=== PATIENT | female | born 1965 | race Two or more races ===

== ENCOUNTER 2018-07-08 13:04 | Emergency (ER) | payer MEDICAID ==
[~2018-07-08] VITALS: Ht 149.9 cm; Wt 81.6 kg
[~2018-07-08 13:04] MED LIST: BACTRIM DS TAB1 EAC1 ORAL; NKM
[2018-07-08 13:20] VITALS: BP 132/86
--- NOTE | 2018-07-08 13:20 | NUR ---
ED Nurse Note: PT WALKED IN TO ER TODAY FROM HOME. AOX4. PT C/O RIGHT UPPER QUADRANT ABDOMINAL PAIN, 5/10 X 10 DAYS THAT WORSENS WITH PALPATION. PT DENIES NAUSEA, VOMITING, OR DIARRHEA. PT DENIES TRAUMA OR INJURY.
[2018-07-08] MEDS ORDERED: Isovue-300 100ml vial INJ PRN (13:30)
[2018-07-08] MEDS ORDERED: Morphine Sulfate 4mg/ml Inj (IV USE ONLY) IVP ONE (13:30)
[2018-07-08 14:09] LABS: BASOPHILS % (AUTO) 1.2 % (0.0-2.0); EOSINOPHILS % (AUTO) 0.5 % (0.0-3.0); HEMOGLOBIN 13.9 G/DL (12.0-16.0); LYMPHOCYTES % (AUTO) 40.4 % (20.0-45.0); MEAN CORPUSCULAR VOLUME 92 FL (80-99); MONOCYTES % (AUTO) 5.1 % (1.0-10.0); NEUTROPHILS % (AUTO) 52.9 % (45.0-75.0); PLATELET COUNT 234 K/UL (150-450); RED BLOOD COUNT 4.68 M/UL (4.20-5.40); RED CELL DISTRIBUTION WIDTH 12.5 % (11.6-14.8); WHITE BLOOD COUNT 7.4 K/UL (4.8-10.8)
[2018-07-08 14:10] LABS: APPEARANCE,URINE CLEAR; BILIRUBIN, URINE NEGATIVE (NEGATIVE); COLOR,URINE PALE YELLOW; GLUCOSE, URINE (UA) NEGATIVE (NEGATIVE); KETONES,URINE NEGATIVE (NEGATIVE); LEUKOCYTE ESTERASE ,URINE NEGATIVE (NEGATIVE); NITRITE,URINE NEGATIVE (NEGATIVE); PH,URINE 5 (4.5-8.0); PROTEIN,URINE NEGATIVE (NEGATIVE); UROBILINOGEN,URINE NORMAL MG/DL (0.0-1.0)
[2018-07-08 14:26] LABS: ANION GAP 10 mmol/L (5-15); BLOOD UREA NITROGEN 15 mg/dL (7-18); CALCIUM 8.8 MG/DL (8.5-10.1); CARBON DIOXIDE 26 MMOL/L (21-32); CHLORIDE 105 MMOL/L (98-107); CREATININE 0.8 MG/DL (0.55-1.30); POTASSIUM 3.2 MMOL/L (3.5-5.1); SODIUM 141 MMOL/L (136-145)
[2018-07-08 14:31] LABS: ALANINE AMINOTRANSFERASE 27 U/L (12-78); ALBUMIN 3.5 G/DL (3.4-5.0); ALBUMIN/GLOBULIN RATIO 0.8 (1.0-2.7); ALKALINE PHOSPHATASE 106 U/L (46-116); ASPARTATE AMINO TRANSFERASE 15 U/L (15-37); BILIRUBIN,TOTAL 0.2 MG/DL (0.2-1.0)
[2018-07-08 14:36] VITALS: BP 115/72
--- NOTE | 2018-07-08 14:36 | NUR ---
ED Nurse Note: PT TO CT VIA [facility].
--- NOTE | 2018-07-08 14:40 | Emergency Room Report ---
History of Present Illness General Chief Complaint: Abdominal Pain Source: Patient Present Illness HPI Patient presents with complaints of right upper quadrant pain involving the lower rib cage area Patient reports the pain started about 10 days ago She has paperwork from a different facility from yesterday Patient reports that she had an x-ray and some blood test done Was diagnosed with contusion however reports that she has not fallen Patient has had previous right-sided breast augmentation, and palpates just over the surgical site which is just over the rib cage region on the lower aspect Denies any vomiting denies any diarrhea Pain is worse with movement Allergies: Coded Allergies: No Known Allergies (Unverified , 11/30/15) Patient History Past Medical History: see triage record Pertinent Family History: none Reviewed Nursing Documentation: PMH: Agreed; PSxH: Agreed Nursing Documentation-PMH Past Medical History: No Stated History Hx Cardiac Problems: No Hx Cancer: No Hx Gastrointestinal Problems: No Hx Neurological Problems: No Review of Systems All Other Systems: negative except mentioned in HPI Physical Exam Vital Signs Date Time Temp Pulse Resp B/P (MAP) Pulse Ox O2 Delivery O2 Flow Rate FiO2 07/08/18 13:18 98.1 83 16 137/91 97 Room Air Sp02 EP Interpretation: reviewed, normal General Appearance: well appearing, no apparent distress Head: normocephalic, atraumatic Eyes: bilateral eye PERRL, bilateral eye EOMI ENT: normal pharynx Neck: supple Respiratory: lungs clear, no retraction, no accessory muscle use Cardiovascular #1: regular rate, rhythm, no edema Gastrointestinal: other - Some discomfort over the right upper quadrant Musculoskeletal: back normal Neurologic: alert, oriented x3, responsive Skin: normal color, no rash Lymphatic: no adenopathy Medical Decision Making Last Vital Signs Date Time Temp Pulse Resp B/P (MAP) Pulse Ox O2 Delivery O2 Flow Rate FiO2 07/08/18 13:20 98.3 82 18 132/86 99 Room Air Signed Out To: on coming physician Referrals: [facility]ERR[facility] (PCP) Melissa Gonzalez DO Jul 08, 2018 14:40
--- NOTE | 2018-07-08 15:16 | Diagnostic Imaging Report ---
Clinical Indication: Abdominal pain and right upper quadrant pain x10 days. Pain is 5 out of 10 Technique: No oral contrast utilized, per emergency room physician request IV administration nonionic contrast. Venous phase spiral acquisition obtained through the abdomen and pelvis. Multiplanar reconstructions were generated. Total dose length product 1117.72 mGycm. CTDIvol(s) 19.51 mGy. Dose reduction achieved using automated exposure control Comparison: 11/30/2015 Findings: Lack of enteric contrast limits assessment of the GI tract. The appendix is normal. There is no evidence of diverticulosis or diverticulitis. No small bowel distention. No free or loculated intraperitoneal gas. There is trace fluid within the pelvis.. The liver is very slightly hypoattenuating, although this is much improved since prior study. No focal hepatic parenchymal abnormality demonstrated. The gallbladder, bile ducts, pancreas, spleen, adrenals, kidneys are all unremarkable. No renal or ureteral calculi, hydronephrosis, or hydroureter. The uterus and ovaries are unremarkable. Previously demonstrated uterine fibroids are less evident currently Incidentally noted are bilateral breast implants. The included lung bases demonstrate minimal atelectasis in the lingula. There are minimal degenerative changes of the lower lumbar spine. Impression: No acute abnormality Fatty liver, improved since prior study of 11/30/2015 Incidental findings as noted The CT scanner at [facility] is accredited by the [employer] and the scans are performed using protocols designed to limit radiation exposure to as low as reasonably achievable to attain images of sufficient resolution adequate for diagnostic evaluation.
[2018-07-08 16:13] VITALS: BP 126/95
[2018-07-08] MEDS ORDERED: LIDODERM700 M1 TOPIC (17:34)
[2018-07-08] MEDS ORDERED: IBUPROFEN800 MG ORAL (17:34)
[2018-07-08 17:45] VITALS: BP 135/74
--- NOTE | 2018-07-08 17:46 | NUR ---
ED Nurse Note: PT LAYING PEACEFULLY IN BED IN NAD. AOX4. PRESCRIPTIONS AND DISCHARGE PAPERWORK EXPLAINED TO PT. PT VERBALIZES UNDERSTANDING AND ALL QUESTIONS WERE ANSWERED. PRESCRIPTIONS AND DISCHARGE PAPERWORK GIVEN TO PT, IV AND ID WRISTBAND REMOVED. PT WALKED OUT OF ER WITH STEADY GAIT AND ALL BELONGINGS.
== END 2018-07-08 17:47 | disposition home or self-care (01) ==
LOC: EMR 13:30
DX: R10.11 Right upper quadrant pain (principal); K76.0 Fatty (change of) liver, not elsewhere classified
CPT/HCPCS: 36415; 74177; 80053; 81003; 83690; 85025; 96374; 96375; 99284; J2270; J2405; Q9967

== ENCOUNTER 2018-07-12 09:46 | Emergency (ER) | payer MEDICAID ==
[~2018-07-12] VITALS: Ht 149.9 cm; Wt 81.6 kg
[~2018-07-12 09:46] MED LIST changes: +IBUPROFEN800 MG ORAL; +LIDODERM700 M1 TOPIC
[2018-07-12] MEDS ORDERED: NORCO 5-325 TA1 EACH ORAL (10:04)
[2018-07-12 10:06] VITALS: BP 129/85
--- NOTE | 2018-07-12 10:06 | Emergency Room Report ---
History of Present Illness General Chief Complaint: Pain Source: Patient Present Illness HPI Patient presents with complaints of right quadrant abdominal pain Reports ongoing for the past 2 weeks After seeing the patient to recall her recent visit to the hospital Patient was previously seen at another facility with similar complaints essentially holding just below her breast augmentation over the surgical scar Denies any short of breath denies any pleurisy Denies any vomiting pain is sharp Denies any other radiation Patient feels that she requires an ultrasound Allergies: Coded Allergies: No Known Allergies (Unverified , 11/30/15) Patient History Past Medical History: see triage record Pertinent Family History: none Now: Yes : 3 Reviewed Nursing Documentation: PMH: Agreed; PSxH: Agreed Nursing Documentation-PMH Hx Cardiac Problems: No Hx Cancer: No Hx Gastrointestinal Problems: No Hx Neurological Problems: No Review of Systems All Other Systems: negative except mentioned in HPI Physical Exam Vital Signs Date Time Temp Pulse Resp B/P (MAP) Pulse Ox O2 Delivery O2 Flow Rate FiO2 07/12/18 09:49 98.1 90 17 129/85 97 Room Air Sp02 EP Interpretation: reviewed, normal General Appearance: well appearing, no apparent distress Head: normocephalic, atraumatic Eyes: bilateral eye PERRL, bilateral eye EOMI ENT: hearing grossly normal, normal pharynx, TMs + canals normal, uvula midline Neck: full range of motion, supple, no meningismus, no bony tend Respiratory: lungs clear, normal breath sounds, no rhonchi, no respiratory distress, no retraction, no accessory muscle use Cardiovascular #1: normal peripheral pulses, regular rate, rhythm, no edema, no gallop, no JVD, no murmur Gastrointestinal: normal bowel sounds, soft, no mass, no organomegaly, non- distended, no guarding, no hernia, no pulsatile mass, no rebound, other - Patient has some discomfort over palpation of the surgical scar region just under the right breast also some discomfort just at the lower aspect of the lower aspect of rib cage, Genitourinary: no CVA tenderness Musculoskeletal: normal inspection Neurologic: oriented x3, responsive, 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, motor strength/ tone normal, sensory intact Psychiatric: mood/affect normal Skin: normal color, no rash, warm/dry, palpation normal Lymphatic: normal inspection, no adenopathy Medical Decision Making Diagnostic Impression: Primary Impression: biliary colic Additional Impression: abdominal pain ER Course With the history exam and presentation, multiple differentials considered, including but not limited to appendicitis, gastritis, cholecystitis, diverticulitis Given the location consideration for pulmonary pathology is also made Patient however does not have any pleurisy Imaging was reviewed from recent presentation no obvious acute pathology is seen liver function tests are also normal on recent presentation Patient could potentially have symptoms of pericolic Otherwise no obvious emergent findings to require repeat workup and patient was recommended to follow closely with outpatient care CT/MRI/US Diagnostic Results CT/MRI/US Diagnostic Results : Impression CT abdomen pelvis 07/08Findings: Lack of enteric contrast limits assessment of the GI tract. The appendix is normal. There is no evidence of diverticulosis or diverticulitis. No small bowel distention. No free or loculated intraperitoneal gas. There is trace fluid within the pelvis.. The liver is very slightly hypoattenuating, although this is much improved since prior study. No focal hepatic parenchymal abnormality demonstrated. The gallbladder, bile ducts, pancreas, spleen, adrenals, kidneys are all unremarkable. No renal or ureteral calculi, hydronephrosis, or hydroureter. The uterus and ovaries are unremarkable. Previously demonstrated uterine fibroids are less evident currently Incidentally noted are bilateral breast implants. The included lung bases demonstrate minimal atelectasis in the lingula. There are minimal degenerative changes of the lower lumbar spine. Impression: No acute abnormality Fatty liver, improved since prior study of 11/30/2015 Last Vital Signs Date Time Temp Pulse Resp B/P (MAP) Pulse Ox O2 Delivery O2 Flow Rate FiO2 07/12/18 09:49 98.1 90 17 129/85 97 Room Air Status: unchanged Disposition: HOME, SELF-CARE Condition: Stable Scripts Hydrocodone Bit/Acetaminophen 5-325* (NORCO 5-325*) 1 Each Tablet 1 TAB ORAL Q8HR PRN for For Pain, #10 TAB 0 Refills Prov: Melissa Gonzalez DO 07/12/18 Referrals: [facility] Patient Instructions: Biliary Colic, Abdominal Pain, Adult Additional Instructions: Patient is provided with the discharge instructions notified to follow up with primary doctor in the next 2-3 days otherwise return to the er with any worsening symptoms. Please note that this report is being documented using DoubleRecall technology. This can lead to erroneous entry secondary to incorrect interpretation by the dictating instrument. Melissa Gonzalez DO Jul 12, 2018 10:06
--- NOTE | 2018-07-12 10:07 | NUR ---
ED Nurse Note:pt. came with c/o abd pain, she was seen by ER
[2018-07-12 10:13] VITALS: BP 129/85
--- NOTE | 2018-07-12 10:13 | NUR ---
Ed Nurse Note: pt is cleared to be DC per ER provider, pt discharge and aftercare instruction provided w/ prescription, pt education done via discussion and handout, pt advised to follow up with pcp or return to ED if sx worsen or new sx develop, pt verbalized understanding and agrees with plan, pt vss, ambulatory w/ steady gait, all belongiongs left w/ pt, wristband removed.
== END 2018-07-12 10:13 | disposition home or self-care (01) ==
LOC: EMR 10:10
DX: K80.50 Calculus of bile duct without cholangitis or cholecystitis without obstruction (principal); K76.0 Fatty (change of) liver, not elsewhere classified
CPT/HCPCS: 99284